=== PATIENT | male | born 1950 | race Caucasian/White ===

== ENCOUNTER 2017-05-08 18:42 | Emergency (ER) | payer MEDICARE, OTHER ==
[2017-05-08] MEDS ORDERED: Lidocaine 1% 5ml(IM or SUTURE)(PAIN CLINIC) IJ ONE (19:30)
[2017-05-08] MEDS ORDERED: Lidocaine 1% 5ml(IM or SUTURE)(PAIN CLINIC) ONE (19:48)
[2017-05-08] MEDS ORDERED: CEPHALEXIN 250 MG CAPSULE PO ONE (20:42)
[2017-05-08] MEDS ORDERED: DIPH,PERTUSS(ACELL),TET VAC/PF 0.5 ML DISP.SYRIN IM ONE (20:44)
--- NOTE | 2017-05-08 20:48 | ED Physician Documentation ---
General Adult - HISTORIAN Historian: patient, spouse - HPI Chief Complaint: Laceration/Recheck/Suture Additional Information: two 1 1/2 inch lacerations from hand held hardboard grinder l inner knee area Onset: hours (1500) Timing: still present Severity: mild, moderate - ROS CONST: no problems EYES/ENT: denies: problems with vision CVS/RESP: denies: chest pain, shortness of breath GI/: none MS/SKIN/LYMPH: none (except lac) NEURO/PSYCH: denies: headache, fainting, difficulty with speech - PAST HX Past History: none Surgeries/Procedures: other (hernia (2)) Immunizations: denies: UTD - SOCIAL HX Smoking History: non-smoker Alcohol Use: rarely Drug Use: none - FAMILY HX Family History: No - REVIEWED ASSESSMENTS Nursing Assessment Reviewed: Yes Vitals Reviewed: Yes Procedures Wound Location: lower extremity Wound's Depth, Shape: superficial Wound Explored: had used hand held hardboard grinder on leandro metal so probable microscopie contam Betadine Prep?: Yes Anesthesia: 1% Lidocaine Wound Debrided: minimal Wound Repaired With: sutures Suture Size/Type: 3:0 Deep Layer Suture Size/Type: 3:0 Sterile Dressing Applied?: Yes Splint Applied?: Yes Sling Applied?: Yes ED Results Lab/Radiology - Orders Orders: ED Orders Category Date Time Status Cephalexin [Keflex] Med 05/08/17 20:42 Discontinued 1,000 mg PO NOW ONE Diph,Pertuss(Acell),Tet Vac/Pf [Adacel] Med 05/08/17 20:44 Discontinued 0.5 ml IM .ONCE ONE Lidocaine 1% 5ml(IM or SUTURE) [Xylocaine] Med 05/08/17 19:48 Discontinued 50 mg .ROUTE .STK-MED ONE General Adult Physical Exam - PHYSICAL EXAM GENERAL APPEARANCE: mild distress EENT: eye inspection normal NECK: normal inspection RESPIRATORY: no resp distress, chest non-tender, breath sounds normal CVS: reg rate & rhythm, heart sounds normal, equal pulses ABDOMEN: soft, non-tender SKIN: warm/dry, normal color. No: cyanosis, diaphoresis, jaundice, mottled EXTREMITIES: non-tender, normal range of motion NEURO: oriented X3, motor nml, sensation nml, mood/affect nml Discharge Clincal Impression: 3 inch lac repair lt leg Referrals: Valarie Hernandez MD [Primary Care Provider] - 2 Days Comments: tet tox keflex Condition: Good Disposition: 01 HOME, SELF-CARE Decision to Admit: NO Decision Time: 21:10
[2017-05-08 21:30] VITALS: BP 132/68
[2017-05-09] MEDS ORDERED: TRIPLE ANTIBIOTIC OINTMENT PAC 1 PACKET TOP ONE (20:35)
== END 2017-05-08 20:55 | disposition home or self-care (01) ==
LOC: ED 18:42
DX: S81.812A Laceration without foreign body, left lower leg, initial encounter (principal); X58.XXXA Exposure to other specified factors, initial encounter; Y93.9 Activity, unspecified; Y99.9 Unspecified external cause status
CPT/HCPCS: 12004; 90471; 90715; 99283

== ENCOUNTER 2019-04-07 09:39 | Emergency (ER) | payer MEDICARE, OTHER ==
[2019-04-07] MEDS: LIDOCAINE HCL 1% PF 300MG/30ML VIAL IJ ONE (10:00)
[2019-04-07] MEDS: CEPHALEXIN 250 MG CAPSULE PO ONE (10:40)
[2019-04-07 10:51] VITALS: BP 142/67
--- NOTE | 2019-04-07 11:51 | Diagnostic Imaging Report ---
JARAD SMITH [facility] [address] [facility] [address] [id number] Report Submission Date: Apr 07, 2019 10:20:49 AM CDT Patient Study Name: RANDALL CHONG V Date: Apr 07, 2019 9:46:05 AM CDT Modality Type: DX Gender: M Description: TIB/FIB : 46 Institution: [facility] Physician: JARAD SMITH Examination: Plain film left tibia/fibula History: INJURY WITH WITH TILE Comparison exams: None available Findings: 3 views of the left tibia fibula demonstrates normal cortical margins. No evidence for fracture line. No soft tissue abnormality. Impression: No acute osseous abnormality. Electronically signed on Apr 07, 2019 10:20:49 AM CDT by: Len AUGUST
== END 2019-04-07 10:44 ==
LOC: ED 09:39
DX: S81.812A Laceration without foreign body, left lower leg, initial encounter (principal); W26.8XXA Contact with other sharp object(s), not elsewhere classified, initial encounter; Y93.89 Activity, other specified; Y99.8 Other external cause status
CPT/HCPCS: 73590; 99282; J2001